=== PATIENT | male | born 1955 | race Two or more races ===

== ENCOUNTER 2022-10-27 18:19 | Emergency (ER) | payer OTHER ==
[~2022-10-27] VITALS: Ht 167.6 cm; Wt 127.9 kg
[~2022-10-27 18:19] MED LIST: MAALOX PLUS30 ML PO; NABUMETONE500 MG PO; PERCOCET 5/3251 TAB PO
[2022-10-27] MEDS ORDERED: AZOR 10-20 MG1 EACH (18:37)
[2022-10-27] MEDS ORDERED: HYDROCHLOROTHIA25 MG PO (18:38)
[2022-10-27] MEDS ORDERED: TOPROL XL50 M1 (18:38)
== END 2022-10-27 20:50 | disposition home or self-care (01) ==
LOC: ER 18:19
DX: S59.812A Other specified injuries left forearm, initial encounter (principal); W31.89XA Contact with other specified machinery, initial encounter; Y93.89 Activity, other specified; Y92.89 Other specified places as the place of occurrence of the external cause; Y99.9 Unspecified external cause status; I10 Essential (primary) hypertension